=== PATIENT | male | born 1995 | race Caucasian/White ===

== ENCOUNTER → 2021-11-12 12:34 | Outpatient (BNVA) | payer MEDICAID, SELFPAY | PROVIDERS: Visit Provider Social Worker | DX: F41.1 Generalized anxiety disorder (principal); F33.2 Major depressive disorder, recurrent severe without psychotic features | CPT/HCPCS: 90837; 90834 ==

== ENCOUNTER → 2021-11-14 08:17 | Outpatient (BNVA) | payer MEDICAID, SELFPAY | PROVIDERS: Visit Provider Psychiatry & Neurology Psychiatry | DX: F41.1 Generalized anxiety disorder (principal); F33.2 Major depressive disorder, recurrent severe without psychotic features | CPT/HCPCS: 99213 ==

== ENCOUNTER 2022-02-22 11:46 | Emergency (ER) | payer MEDICAID, SELFPAY ==
[2022-02-22 12:04] VITALS: BP 159/100; PULSE 74; RESP 16; TEMP 36.6; O2SAT 99
--- NOTE | 2022-02-22 12:17 | W.ED.HA ---
HPI - Headache General: Chief Complaint: Headache Stated Complaint: headache for a week Time Seen by Provider: 02/22/22 11:54 Source: patient Mode of arrival: ambulatory Limitations: no limitations History of Present Illness: 26-year-old male states he had a head injury years ago and has had chronic migraines since then. He states he is had a migraine headache has been going on for 6 to 7 days. States that headache is a 6 out of 10 does have some photophobia and phonophobia states it is like his previous migraines he states it typically able to treat his migraines at home with Excedrin he had minimal relief with the Excedrin. Denies any fever denies any vomiting denies any diarrhea. Associated symptoms: Deny chest pain, fever(s), nausea, rash or vomiting Review of Systems Const: Denies: fever(s), chills, body aches or change in appetite Eyes: Denies: blurry vision or eye discomfort ENMT: Denies: throat pain or dental pain Card: Denies: chest pain Resp: Denies: dyspnea GI: Denies: abdominal pain, nausea, vomiting or diarrhea : Denies: dysuria Musc: Denies: neck pain or back pain Skin/Breast: Denies: rash Neuro: Reports: headache(s) Psych: Denies: depression Carlos/Lymph: Denies: easy bruising All/Imm: Denies: urticaria PFSH ED PFSH: Medical History Psychiatric care Social History Smoking and tobacco status: never smoked Second hand smoke exposure: No Physical Exam Const: COMMON NORMALS: no acute distress, patient oriented x3 and healthy appearing HENMT: COMMON NORMALS: normocephalic and atraumatic HEAD & SCALP: normocephalic and atraumatic Eye: COMMON NORMALS: Equal, round and reactive pupils present and EOMs intact bilaterally PUPIL: Yes Equal, round and reactive pupils present Neck/C-Spine: COMMON NORMALS: full ROM and supple Chest: COMMONS NORMALS: normal inspection of the chest and normal palpation of entire chest wall Resp: COMMON NORMALS: normal respiratory effort, No retractions, No use of accessory muscles and clear to auscultation bilaterally AUSCULTATION: clear to auscultation bilaterally Cardio: COMMON NORMALS: regular rate, regular rhythm and No murmurs present (Cardio) RATE: regular rate RHYTHM: regular rhythm GI: COMMON NORMALS: Normal to inspection, nondistended, normoactive bowel sounds present, Soft to palpation, non-tender and no masses PALPATION: Yes Soft to palpation Extremity: COMMON NORMALS: normal to inspection and full ROM Neuro: COMMON NORMALS: patient oriented x3, moves all extremities and no focal motor deficits Psych: COMMON NORMALS: mental status grossly normal, Normal thought process present and cooperative THOUGHT PROCESS: Normal thought process present Skin: COMMON NORMALS: no rashes or lesions noted and no wounds GENERAL SKIN EXAM: no rashes or lesions noted Course Vital Signs: Vital signs: Vital Signs Temperature 97.8 F 02/22/22 12:04 Pulse Rate 74 02/22/22 12:04 Respiratory Rate 16 02/22/22 12:04 Blood Pressure 159/100 02/22/22 12:04 Pulse Oximetry 99 02/22/22 12:04 MDM - Headache Medical Decision Making Patient presents here with headache is likely migraine headache his headache is much improved here after Reglan Benadryl and Toradol he has no signs of meningitis or subarachnoid hemorrhage she is stable for discharge follow-up with neurology return if worsening. Discharge Plan Discharge Patient Disposition: Home Clinical Impression: Headache Qualifiers: Headache type: unspecified Headache chronicity pattern: unspecified pattern Intractability: not intractable Qualified Code(s): R51.9 - Headache, unspecified Condition: Stable Prescriptions: No Action tizanidine 6 mg capsule 6 mg PO BID PRN0RF acetaminophen [Tylenol] 325 mg capsule 325 mg PO QID PRN0RF ibuprofen [Advil] 200 mg tablet 200 mg PO Q6H PRN0RF fluoxetine 40 mg capsule 40 mg PO DAILY Qty: 30 2RF trazodone 50 mg tablet 100 mg PO .HS PRN (Reason: insomnia) Qty: 60 2RF Discharge Orders: Discharge ED (Routine); Ordered 02/22/22 Ordered By: Abigail Ritchie Referrals: Blanca Ruvalcaba MD [Physician] - 1-3 days Discharge Diet: Advance as tolerated Discharge Activity: Resume usual activity Patient Instructions: Headache - Migraine (Adult) Coding Level of Care Code ED Healthcare Risk Control Consultant for Chg Fwd Exam Comprehensive
[2022-02-22] MEDS: ketorolac 30 mg/mL INJ 15 MG IVP (12:47)
[2022-02-22] MEDS: metoclopramide 5 mg/mL SDV 2 mL 10 MG IVP (12:47)
[2022-02-22] MEDS: diphenhydrAMINE 50 mg/mL SDV 1mL IVP (12:47)
[2022-02-22] MEDS: LORazepam 2 mg/mL INJ 1 mL 1 MG IVP (13:17)
[2022-02-22 13:38] VITALS: BP 129/62; O2SAT 93
[2022-02-22 14:09] VITALS: BP 129/62; O2SAT 93
[2022-02-22 14:43] VITALS: BP 120/85; PULSE 96; RESP 14; O2SAT 96
--- NOTE | 2022-02-24 14:15 | DCPLANNER ---
Addendum entered by Sofia Ray 02/28/22 15:53: Patient had a follow up appointment scheduled for 02.25.[address] Ruvalcaba - patient did attend appointment. Original Note: assurance senior manager insurance had message to schedule a follow up appointment for patient with neurology. assurance senior manager insurance sent patients information to the front office staff at neurology. Patients information will be printed and reviewed. Clinic will call patient with appointment information.
== END 2022-02-22 14:44 | disposition home or self-care (01) ==
PROVIDERS: Emergency Provider Emergency Medicine
DX: R51.9 Headache, unspecified (principal)
CPT/HCPCS: 96374; 96375; 99284; J1200; J1885; J2060; J2765

== ENCOUNTER → 2022-02-25 10:12 | Outpatient (BNVA) | payer MEDICAID, SELFPAY | PROVIDERS: Visit Provider Specialist | DX: G43.711 Chronic migraine without aura, intractable, with status migrainosus (principal); F84.5 Asperger's syndrome; F95.2 Tourette's disorder; M54.9 Dorsalgia, unspecified | CPT/HCPCS: 99204; 99205 ==

== ENCOUNTER → 2022-04-03 15:38 | Outpatient (BNVA) | payer MEDICAID, SELFPAY | PROVIDERS: Visit Provider Specialist | DX: G43.711 Chronic migraine without aura, intractable, with status migrainosus (principal); F95.2 Tourette's disorder; M54.9 Dorsalgia, unspecified | CPT/HCPCS: 99213 ==

== ENCOUNTER → 2022-05-27 07:52 | Outpatient (BNVA) | payer MEDICAID, SELFPAY | PROVIDERS: PCP Nurse Practitioner Family; Referring Provider Specialist; Visit Provider Specialist | DX: G25.3 Myoclonus (principal) | CPT/HCPCS: 95812; 95816 ==

== ENCOUNTER 2022-08-07 09:45 | Outpatient (CLI) | payer MEDICAID, SELFPAY ==
--- NOTE | 2022-08-07 10:00 | MR_ITS ---
WS: [id number] MRI BRAIN WITHOUT CONTRAST HISTORY: G43.711 - Chronic migraine without aura, intractable, history of Tourette's. COMPARISON: None available. TECHNIQUE: Diffusion imaging, multiplanar T1, T2 and FLAIR imaging obtained. No evidence for acute infarct or hemorrhage. Zuniga-white matter differentiation is normal. No remote or acute infarcts are volume loss. Ventricles and extra-axial spaces are normal. No inferior displacement of cerebellar tonsils. The sella turcica and pituitary gland are unremarkabl e. Dural venous sinuses and [place] of [place] demonstrate no abnormality on this unenhanced studies. Paranasal sinuses: Clear. Mastoid air cells: Normal. Calvarium and scalp: Intact. MR/MR head wo con* [id number] IMPRESSION: 1. Unremarkable noncontrast MRI brain.
== END 2022-08-07 09:46 | disposition home or self-care (01) ==
LOC: RAD 09:45
PROVIDERS: PCP Nurse Practitioner Family; Visit Provider Specialist
DX: G43.711 Chronic migraine without aura, intractable, with status migrainosus (principal)
CPT/HCPCS: 36415; 70551; 80164

== ENCOUNTER 2022-08-07 09:45 | Outpatient (CLI) | payer MEDICAID, SELFPAY ==
--- NOTE | 2022-08-07 10:45 | MR_ITS ---
WS: [id number] MRA ANGIOGRAPHY [place] OF [place] HISTORY: G43.711 - Chronic migraine without aura, intractable COMPARISON: None available. TECHNIQUE: 3-D MR angiography is performed of the [place]. All images are reviewed including source images. Small caliber distal RIGHT vertebral artery but it is patent. Dominant patent LEFT vertebral artery. Normal basilar artery and posterior cerebral arteries. Multiple visualized posterior communicating ar teries. Intracranial internal carotid arteries are widely patent. No significant stenosis or aneurysm. No ath erosclerotic plaque. Middle and anterior cerebral arteries are normal. Aneurysm identified. MR/MR angio head wo con [id number] IMPRESSION: Normal MR angiogram [place]. No aneurysms or occlusions.
== END 2022-08-07 09:46 | disposition home or self-care (01) ==
LOC: RAD 09:46
PROVIDERS: PCP Nurse Practitioner Family; Visit Provider Specialist
DX: G43.711 Chronic migraine without aura, intractable, with status migrainosus (principal); F33.2 Major depressive disorder, recurrent severe without psychotic features; F41.1 Generalized anxiety disorder
CPT/HCPCS: 70544

== ENCOUNTER 2022-08-30 09:46 | Emergency (ER) | payer MEDICAID, SELFPAY ==
[2022-08-30 09:52] VITALS: BP 149/87; PULSE 121; RESP 16; TEMP 37.1; O2SAT 99; BMI 38.4
--- NOTE | 2022-08-30 09:55 | XRR_ITS ---
PROCEDURE INFORMATION: Exam: XR Chest Exam date and time: 08/30/2022 11:19 AM Age: 26 years old Clinical indication: Cough and fever; Additional info: Fever and cough TECHNIQUE: Imaging protocol: Radiologic exam of the chest. Views: 1 view. COMPARISON: No relevant prior studies available. FINDINGS: Lungs: Unremarkable. No consolidation. Pleural spaces: Unremarkable. No pleural effusion. No pneumothorax. Heart/Mediastinum: Unremarkable. No cardiomegaly. Bones/joints: Unremarkable. XR/XR chest 1V portable [id number] IMPRESSION: No acute findings.
--- NOTE | 2022-08-30 09:58 | W.ED.URI ---
HPI - URI/Sore Throat General: Chief Complaint: Upper Respiratory Infection Stated Complaint: fever, cough, n/v; h/a Time Seen by Provider: 08/30/22 09:54 History of Present Illness: Patient is a 26-year-old male comes in the ED with upper respiratory symptoms. Endorses having fevers of 102. He had a positive home COVID test yesterday. He is having symptoms of nasal drainage and congestion, fevers, body aches, chills, cough. Symptoms started approximately 4 days ago. He is able to keep p.o. food and fluids down. Patient has a history of asthma. Associated symptoms: Reports chills, fever(s) and nasal congestion; Deny abdominal pain, chest pain, diarrhea, headache(s), nausea or vomiting Review of Systems Const: Reports: fever(s), chills and body aches; Denies: fatigue Eyes: Denies: change in vision or eye discomfort ENMT: Reports: nasal discharge and nasal congestion; Denies: throat pain or odynophagia Card: Denies: chest pain, palpitations, edema, swelling of feet/ankles, dyspnea on exertion or orthopnea Resp: Reports: non-productive cough; Denies: dyspnea or productive cough GI: Denies: abdominal pain, nausea, vomiting, diarrhea, constipation or hematochezia : Denies: flank pain, difficulty urinating, dysuria or hematuria Musc: Denies: neck pain, back pain or extremity swelling Skin/Breast: Denies: rash or new lesions Neuro: Denies: headache(s), numbness in extremities or weakness in extremities PFS ED PFSH: Medical History No pertinent past medical history Psychiatric care Surgical History No pertinent past surgical history Social History Smoking and tobacco status: never smoked Second hand smoke exposure: No Smoking risk assessment/counseling performed?: No Alcohol intake: current Alcohol intake frequency: holidays/special occasions only Alcohol type: beer Desire information about alcohol rehabilitation?: No Counseling given: No Desire information about substance/drug rehabilitation?: No Counseling given: No Physical Exam Const: COMMON NORMALS: no acute distress, patient oriented x3 and alert GENERAL APPEARANCE: cooperative and comfortable HENMT: COMMON NORMALS: normocephalic HEAD & SCALP: normocephalic MOUTH: Normal oral and palatal mucosa present THROAT: posterior oropharynx normal and uvula midline Neck/C-Spine: COMMON NORMALS: supple GENERAL: Yes normal visual inspection Resp: COMMON NORMALS: normal respiratory effort, No retractions, No use of accessory muscles and clear to auscultation bilaterally AUSCULTATION: clear to auscultation bilaterally Cardio: COMMON NORMALS: regular rate, regular rhythm, S1 normal heart sound present, S2 normal heart sound present, No gallops present (Cardio), No clicks present (Cardio), No murmurs present (Cardio) and Peripheral pulses 2+ throughout RATE: regular rate RHYTHM: regular rhythm HEART SOUNDS: S1 normal heart sound present and S2 normal heart sound present PERIPHERAL PULSES: Peripheral pulses 2+ throughout GI: COMMON NORMALS: Normal to inspection, nondistended, normoactive bowel sounds present, Soft to palpation, non-tender and no masses PALPATION: Yes Soft to palpation : COMMON NORMALS: Yes no CVA tenderness BLADDER/KIDNEY EXAM: Yes no CVA tenderness Back/Pelvis: COMMON NORMALS: no CVA tenderness Extremity: COMMON NORMALS: normal to inspection Neuro: COMMON NORMALS: patient oriented x3 SENSORIUM/ORIENTATION: Yes alert GAIT: Yes Normal gait present Skin: GENERAL SKIN EXAM: dry skin Course Vital Signs: Vital signs: Vital Signs Temperature 98.7 F 08/30/22 09:52 Pulse Rate 103 H 08/30/22 11:29 Respiratory Rate 16 08/30/22 11:29 Blood Pressure 147/81 08/30/22 11:29 Pulse Oximetry 98 08/30/22 11:29 Oxygen Delivery Me thod 08/30/22 09:52 MDM - URI/Sore Throat Medical Decision Making Patient is a 26-year-old male comes in the ED with upper respiratory symptoms. Endorses having fevers of 102. He had a positive home COVID test yesterday. He is having symptoms of nasal drainage and congestion, fevers, body aches, chills, cough. Symptoms started approximately 4 days ago. Exam of patient is benign. Chest x-ray shows no acute findings. COVID test was positive. He is diagnosed with COVID-19 and was discharged home with a prescription for azithromycin and prednisone given his asthma history. Follow-up with PCP in the next week for reevaluation. Return ED precautions given. Patient her study with plan. Lab Data I reviewed the patient's lab results. Radiology Impressions Chest X-Ray 08/30/22 09:55 IMPRESSION: No acute findings. Laboratory Results SARS-CoV-2 Ag (Rapid) positive (Negative) 08/30/22 10:25 Discharge Plan Discharge Patient Disposition: Home Clinical Impression: COVID-19 Condition: Stable Prescriptions: New azithromycin 250 mg tablet See Rx Instructions .ROUTE .COMPLEX Qty: 6 0RF Rx Instructions: For 250 mg dose pack: take 500 mg today (day 1), then 250 mg for 4 days (days 2-5) prednisone 20 mg tablet 20 mg PO BID 5 Days Qty: 10 0RF No Action acetaminophen [Tylenol] 325 mg capsule 325 mg PO QID PRN ibuprofen [Advil] 200 mg tablet 200 mg PO Q6H PRN Emgality Syringe 120 mg/mL syringe 240 mg SUBCUT ONCE Qty: 2 0RF Rx Instructions: Loading dose Emgality Syringe 120 mg/mL syringe 120 mg SUBCUT ONCE Qty: 1 6RF albuterol sulfate 90 mcg/actuation HFA aerosol inhaler 3 inh inhalation QID PRN (Reason: shortness of breath or wheezing) fluoxetine 40 mg capsule 40 mg PO DAILY Qty: 30 2RF trazodone 50 mg tablet 100 mg PO .HS PRN (Reason: insomnia) Qty: 60 2RF divalproex [Depakote ER] 500 mg tablet extended release 24 hr 500 mg PO TID 90 Days Qty: 270 3RF Rx Instructions: Take 3 tabs daily Discharge Orders: Discharge ED (Routine); Ordered 08/30/22 Ordered By: Mark Delgado Referrals: Citlali Moody FNP [Primary Care Provider] - Discharge Diet: Regular Discharge Activity: Increase activity as tolerated Patient Instructions: COVID-19 (Coronavirus Disease 2019) (ED) Activity Restrictions/Additional Instructions: Follow-up with medical provider as directed in the next 7 to 10 days for reevaluation. Take medications as prescribed. Return to the ER or your medical provider if condition worsens. Please read and understand discharge instructions. Thank you for choosing [facility] for your healthcare needs today. Please realize this is an emergency room and that we are providing you with a medical screening exam and this may not be complete and all inclusive of all the testing and or work up that you may need to determine your ailment or severity of your illness. It is very important that you follow up as instructed or that you return to the Emergency Department should you have concerns or if your condition changes or worsens in any way. Coding Level of Care Code ED Cooking Casing And Drying Supervisor for Nikko Fwd Exam Comprehensive
[2022-08-30 11:04] LABS: SARS Covid-2 Antigen positive (Negative)
[2022-08-30 11:29] VITALS: BP 147/81; PULSE 103; RESP 16; O2SAT 98
== END 2022-08-30 11:28 | disposition home or self-care (01) ==
PROVIDERS: Emergency Provider Physician Assistant; PCP Nurse Practitioner Family
DX: U07.1 COVID-19 (principal)
CPT/HCPCS: 71045; 87426; 99283

== ENCOUNTER 2024-11-22 08:11 | Emergency (ER) | payer MEDICAID, SELFPAY ==
[2024-11-22 08:22] VITALS: BP 152/94; PULSE 60; RESP 20; TEMP 36.7; O2SAT 100; BMI 35.4
--- NOTE | 2024-11-22 09:49 | ED_ITS ---
HPI - Abdominal Pain 2 General: Chief Complaint: Abdominal Pain Stated Complaint: abd pain Time Seen by Provider: 11/22/24 08:30 History of Present Illness: 29-year-old male presents emergency room with complaints of left lower quadrant abdominal pain. Had had several loose stools as well no hematochezia or melena no hematemesis coffee-ground emesis no fever sweats chills denies dysuria urgency or frequency no hematuria. No history of kidney stones. He has previously had cholecystectomy. Associated Symptoms: Reports nausea; Denies chills, dysuria and fever(s) Related Data Home Medications ?Medication ?Instructions ?Recorded ?Confirmed topiramate 50 mg tablet 50 mg PO DAILY 11/22/2411/05 Previous Rx's ?Medication ?Instructions ?Recorded ciprofloxacin HCl 500 mg tablet 500 mg PO BID #14 tabs 11/22/24 metronidazole 500 mg tablet 500 mg PO BID 7 days #14 t abs 11/22/24 Allergies Allergy/AdvReac Type Severity Reaction Status Date / Time Sulfa (Sulfonamide Allergy Unknown Unknown Verified 10/16/24 10:45 Antibiotics) Review of Systems 2 Const: Denies: fever(s) or chills Card: Denies: chest pain Resp: Denies: dyspnea GI: Reports: abdominal pain and nausea : Denies: dysuria, urinary frequency or urinary urgency Musc: Denies: neck pain or back pain Skin/Breast: Denies: rash PFSH ED 2 PFSH: Medical History No pertinent past medical history Surgical History No pertinent past surgical history Social History Smoking and tobacco/nicotine status: never used tobacco/nicotine Second hand smoke exposure: No Alcohol intake: current Alcohol intake frequency: holidays/special occasions only Alcohol type: beer Substance/Drug Use: never Physical Exam 2 HENMT: COMMON NORMALS: normocephalic, atraumatic and hearing grossly normal bilaterally HEAD & SCALP: normocephalic and atraumatic Resp: COMMON NORMALS: normal respiratory effort, No retractions, No use of accessory muscles and clear to auscultation bilaterally AUSCULTATION: clear to auscultation bilaterally Cardio: COMMON NORMALS: regular rate, regular rhythm and No murmurs present (Cardio) RATE: regular rate RHYTHM: regular rhythm GI: COMMON NORMALS: No hepatosplenomegaly present AUSCULTATION: Yes normoactive bowel sounds PALPATION: Yes Tenderness to palpation present (GI) (Tenderness from the midline extending to the left lower quadrant) Details: LLQ, No Guarding due to palpation present (GI) and Yes No hepatosplenomegaly present Extremity: COMMON NORMALS: normal to inspection, capillary refill normal, no clubbing, cyanosis or edema, no calf tenderness and no pedal edema Skin: COMMON NORMALS: no rashes or lesions noted GENERAL SKIN EXAM: no rashes or lesions noted Course 2 Vital Signs: Vital signs: Vital Signs Temperature 98.1 F 11/22/24 08:22 Pulse Rate 78 11/22/24 11:59 Respiratory Rate 20 H 11/22/24 08:22 Blood Pressure 135/81 11/22/24 11:59 Pulse Oximetry 97 11/22/24 11:59 Oxygen Delivery Me thod Room Air 11/22/24 08:22 MDM - Abdominal Pain Medical Decision Making CT shows diverticulitis. Rather odd for his young age. Will treat with Cipro and Flagyl he was given dietary instructions follow-up with his primary care doctor he may need to have a colonoscopy at an earlier than usual age given his episode of diverticulitis Lab Data I reviewed the patient's lab results. 11/22/24 10:10 11/22/24 10:10 Labs/Radiology: Radiology Impressions Abdomen/Pelvis CT 11/22/24 10:13 IMPRESSION: 1. Focal short segment acute sigmoid diverticulitis. No abscess or free air. 2. Normal appendix. 3. Moderate sigmoid diverticulosis. Diverticular burden is more extensive than typically seen in a patient of this age. 4. Prior cholecystectomy. Laboratory Results WBC 12.61 10^3/uL (3.29-11.43) H 11/22/24 10:10 RBC 5.28 10^6/uL (3.85-5.65) 11/22/24 10:10 Hgb 15.10 g/dL (11.27-16.99) 11/22/24 10:10 Hct 45.6 % (37-53) 11/22/24 10:10 MCV 86.4 fl (82-101) 11/22/24 10:10 MCH 28.6 pg (27-33) 11/22/24 10:10 MCHC 33.1 g/dL (30-55) 11/22/24 10:10 RDW 12.1 % (12.1-15.1) 11/22/24 10:10 Plt Count 259 10^3/cmm (157-399) 11/22/24 10:10 MPV 10.7 fL (7.4-10.4) H 11/22/24 10:10 Neut % (Auto) 85.0 % 11/22/24 10:10 Lymph % (Auto) 8.9 % 11/22/24 10:10 [place] % (Auto) 4.7 % 11/22/24 10:10 Eos % (Auto) 0.4 % 11/22/24 10:10 Baso % (Auto) 0.4 % 11/22/24 10:10 Neut # (Auto) 10.72 10^3/uL (1.8-7.7) H 11/22/24 10:10 Lymph # (Auto) 1.1 10^3/uL (0.8-4.8) 11/22/24 10:10 [place] # (Auto) 0.6 10^3/uL (0.2-0.9) 11/22/24 10:10 Eos # (Auto) 0.1 10^3/uL (0.0-0.8) 11/22/24 10:10 Baso # (Auto) 0.1 10^3/uL (0.0-0.1) 11/22/24 10:10 Nucleated RBC % (auto) 0 % 11/22/24 10:10 Nucleated RBCs # 0.0 /100WBC 11/22/24 10:10 Sodium 140 mmol/L (136-145) 11/22/24 10:10 Potassium 3.8 mmol/L (3.5-5.1) 11/22/24 10:10 Chloride 106 mmol/L (98-107) 11/22/24 10:10 Carbon Dioxide 20 mmol/L (22-29) L 11/22/24 10:10 Anion Gap 17.8 (5-19) 11/22/24 10:10 BUN 17 mg/dL (6-20) 11/22/24 10:10 Creatinine 0.9 mg/dL (0.7-1.2) 11/22/24 10:10 GFR Calculation 98.4 mL/min (90-130) 11/22/24 10:10 Glucose 111 mg/dL (65-115) 11/22/24 10:10 Calculated Osmolality 292 mOsm/kg (285-295) 11/22/24 10:10 Calcium 9.0 mg/dL (8.5-10.5) 11/22/24 10:10 Total Bilirubin 0.3 mg/dL (0.15-1.2) 11/22/24 10:10 AST 22 U/L (0-40) 11/22/24 10:10 ALT 28 U/L (0-41) 11/22/24 10:10 Alkaline Phosphatase 60 U/L (40-130) 11/22/24 10:10 Total Protein 6.9 g/dL (6.6-8.7) 11/22/24 10:10 Albumin 4.3 g/dL (3.5-5.2) 11/22/24 10:10 Globulin 2.6 g/dL (1.3-4.6) 11/22/24 10:10 Lipase 31 U/L (13-60) 11/22/24 10:10 Urine Color Yellow (Yellow) 11/22/24 10:57 Urine Appearance Clear (CLEAR) 11/22/24 10:57 Urine pH 7.5 (5-7) 11/22/24 10:57 Ur Specific [place] 1.023 (1.005-1.030) 11/22/24 10:57 Urine Protein Negative (Negative) 11/22/24 10:57 Urine Glucose (UA) Negative (Normal) 11/22/24 10:57 Urine Ketones Trace (Negative) 11/22/24 10:57 Urine Blood 1+ (Negative) A 11/22/24 10:57 Urine Nitrate Negative (Negative) 11/22/24 10:57 Urine Bilirubin Negative (Negative) 11/22/24 10:57 Urine Urobilinogen 0.2 mg/dL (Negative) 11/22/24 10:57 Ur Leukocyte Esterase Negative (Negative) 11/22/24 10:57 Urine RBC 3-5 /hpf (0-2) 11/22/24 10:57 Urine WBC 0-5 /hpf (0-5) 11/22/24 10:57 Ur Squamous Epith Cells 0-5 /hpf (0-5) 11/22/24 10:57 Amorphous Sediment Not Reportable 11/22/24 10:57 Urine Bacteria None seen /hpf (NONE) 11/22/24 10:57 Hyaline Casts 0-4 /lpf H 11/22/24 10:57 Influenza A (PCR) Negative (Negative) 11/22/24 10:13 Influenza Type B (PCR) Negative (Negative) 11/22/24 10:13 RSV (PCR) Negative (Negative) 11/22/24 10:13 SARS-CoV-2 (PCR) Negative (Negative) 11/22/24 10:13 All radiology interpretation(s) finalized by discharge Discharge Plan Discharge Patient Disposition: Home Clinical Impression: Diverticulitis Condition: Stable Prescriptions: New ciprofloxacin HCl 500 mg tablet 500 mg PO BID Qty: 14 0RF metronidazole 500 mg tablet 500 mg PO BID 7 Days Qty: 14 0RF No Action topiramate 50 mg tablet 50 mg PO DAILY Discharge Orders: Discharge ED (Routine); Ordered 11/22/24 Ordered By: Geovanni Martinez Referrals: Citlali Moody FNP [Primary Care Provider] - Discharge Diet: Clear Liquid Discharge Activity: Increase activity as tolerated Patient Instructions: Diverticulitis (ED), Diverticulitis Diet (ED), Opioid Safety, Pain Management Activity Restrictions/Additional Instructions: Thank you for choosing [facility] for your healthcare needs today. It is very important that you follow up as instructed or that you return to the Emergency Department should you have concerns or if your condition changes or worsens in any way. You were seen in the emergency room with complaints of abdominal pain on exam and imaging you are noted to have acute diverticulitis. Recommend diet as per the instructions you are given at discharge initially would start off with clear liquids and advance as tolerated. Use the oral antibiotics as prescribed. Follow-up with your primary care doctor. Diverticulitis is a bit unusual at your age. This may need to be followed up with colonoscopy at a later date. Print Language: Ghanaian Coding Level of Care Code ED Automotive Heavy Mechanic for Nikko Warner
--- NOTE | 2024-11-22 10:13 | CT_ITS ---
WS: [id number] CT ABDOMEN AND PELVIS WITH CONTRAST HISTORY: abd pain, lower abdominal pain with nausea. TECHNIQUE: Imaging performed of the abdomen and pelvis with IV contrast. Single phase imaging of the abdomen. Coronal and sagittal reformats are submitted. All CT scans at [facility] use at least one of these dose optimization techniques: automated exposure control; mA and/or kV adjustment per patient size (includes targeted exams where dose is matched to clinical indication); or iterative reconstruction. IV CONTRAST: Omnipaque 350; 100 mL IV. Oral contrast: No DLP: 979.83 mGy.cm COMPARISON: None available. Lower thorax: Lung bases are clear. Heart is normal size. No hiatal hernia. Liver/biliary system: Normal size with no intrahepatic dilatation. Gallbladder: Status post cholecystectomy. Pancreas: Normal size pancreas and pancreatic duct. No adjacent inflammation. Spleen: Normal size spleen. No mass or infarct. Several splenules near the hilum. Adrenal glands: Normal. Right kidney: Nonobstructing 2 mm calcification upper pole. Left kidney: Normal. Aorta: Normal. Lymphadenopathy: None. Free fluid: None. GI tract: Normal appendix. The appendix is elongated with no adjacent inflammation. No appendicolith. Small amount of fluid within the stomach. No small bowel obstruction or enteritis. Mild increased fecal material in the RIGHT colon. Numerous sigmoid diverticula. Short segment of acute diverticulitis involving the mid, lateral sigmoid colon. There are 2 adjacent diverticula which are inflamed. Wall of one of these diverticula is enhancing. There is no perforation or abscess. Abdominal wall: Unremarkable abdominal wall. No hernia. Pelvis: No free fluid or adenopathy within the pelvis. Bones: Unremarkable. CT/CT abdomen pelvis w con* [id number] IMPRESSION: 1. Focal short segment acute sigmoid diverticulitis. No abscess or free air. 2. Normal appendix. 3. Moderate sigmoid diverticulosis. Diverticular burden is more extensive than typically seen in a patient of this age. 4. Prior cholecystectomy.
[2024-11-22] MEDS: iohexol 350 mg/mL 500 mL Btl (per mL) IV (10:27)
[2024-11-22 10:35] LABS: Basophils # 0.1 10^3/uL (0.0-0.1); Basophils % 0.4 %; Eosinophils # 0.1 10^3/uL (0.0-0.8); Eosinophils % 0.4 %; Hematocrit 45.6 % (37-53); Lymphocytes # 1.1 10^3/uL (0.8-4.8); Lymphocytes % 8.9 %; Mean Corpuscular HGB Conc 33.1 g/dL (30-55); Mean Corpuscular Hemoglobin 28.6 pg (27-33); Mean Corpuscular Volume 86.4 fl (82-101); Mean Platelet Volume 10.7 fL (7.4-10.4); Monocytes # 0.6 10^3/uL (0.2-0.9); Monocytes % 4.7 %; Neutrophils # 10.72 10^3/uL (1.8-7.7); Nucleated Red Blood Cells % 0 %; Platelet Count 259 10^3/cmm (157-399); Red Blood Count 5.28 10^6/uL (3.85-5.65); Red Cell Distribution Width 12.1 % (12.1-15.1); White Blood Count 12.61 10^3/uL (3.29-11.43)
[2024-11-22 10:41] VITALS: PULSE 63; O2SAT 100
[2024-11-22 10:51] LABS: Alanine Aminotransferase 28 U/L (0-41); Albumin Level 4.3 g/dL (3.5-5.2); Alkaline Phosphatase 60 U/L (40-130); Anion Gap 17.8 (5-19); Aspartate Amino Transferase 22 U/L (0-40); Blood Urea Nitrogen 17 mg/dL (6-20); Carbon Dioxide 20 mmol/L (22-29); Chloride 106 mmol/L (98-107); Creatinine Clr Calc Pharmacy 144.6013; Globulin 2.6 g/dL (1.3-4.6); Glomerular Filtration Rate 98.4 mL/min (90-130); Glucose 111 mg/dL (65-115); Lipase 31 U/L (13-60); Osmolality Calculated 292 mOsm/kg (285-295); Potassium 3.8 mmol/L (3.5-5.1); Sodium 140 mmol/L (136-145); Total Bilirubin 0.3 mg/dL (0.15-1.2); Total Protein 6.9 g/dL (6.6-8.7)
[2024-11-22 11:08] LABS: Influenza A NEGATIVE (Negative); Influenza B NEGATIVE (Negative); Respiratory Syncytial Virus Ce NEGATIVE (Negative); SARS-CoV-2 PCR NEGATIVE (Negative)
[2024-11-22 11:11] LABS: Bilirubin Urine Negative (Negative); Blood Urine 1+ (Negative); Glucose Urine UA Negative (Normal); Ketones Urine Trace (Negative); Leukocyte Esterase Urine Negative (Negative); Nitrate Urine Negative (Negative); Protein Urine Negative (Negative); Specific Gravity, Urine 1.023 (1.005-1.030); Urine Appearance Clear (CLEAR); Urine Color Yellow (Yellow); Urobilinogen Urine 0.2 mg/dL (Negative); pH Urine 7.5 (5-7)
[2024-11-22 11:16] LABS: Add Urine Microscopic? YES; Bacteria Urine None Seen /hpf; Hyaline Casts Urine 0-4 /lpf; Squamous Epithelial Cell Urine 0-5 /hpf (0-5); WBC Urine 0-5 /hpf (0-5)
[2024-11-22 11:59] VITALS: BP 135/81; PULSE 78; O2SAT 97
== END 2024-11-22 12:01 | disposition home or self-care (01) ==
PROVIDERS: Emergency Provider Family Medicine; PCP Nurse Practitioner Family
DX: K57.92 Diverticulitis of intestine, part unspecified, without perforation or abscess without bleeding (principal); Z11.52 Encounter for screening for COVID-19
CPT/HCPCS: 36415; 74177; 80053; 81001; 83690; 85025; 87637; 99285